=== PATIENT | female | born 1955 | race Caucasian/White ===

== ENCOUNTER 2017-01-01 08:19 | Inpatient (IN) | payer BC ==
[~2017-01-01] VITALS: Ht 157.5 cm; Wt 68.9 kg
[2017-01-01] VITALS (8 sets, daily range): BP systolic 110–145; BP diastolic 64–87; PULSE 59–85; TEMP 36.6–37; O2SAT 94–99; Ht 157.5 cm; Wt 68.9 kg
[~2017-01-01 08:19] MED LIST: CLON0.5T3 PO; LEVO88TA PO; OXYC1TAB3 PO; TAMS0.4C38 PO
[2017-01-01] MEDS ORDERED: SODIUM CHLORIDE 0.9% 1000ML 1,000 ML IV STA (08:56)
[2017-01-01] MEDS ORDERED: OXYC1TAB3 PO (09:03)
[2017-01-01] MEDS ORDERED: TAMS0.4C38 PO (09:03)
[2017-01-01 09:07] LABS: BASO % 0.5 %; BASO ABS # 0.04 K/uL (0-0.2); COMPLETE YES; EOS % 0.5 %; HEMATOCRIT 42.7 % (37-47); IG% 0.1 %; LYMPH % 19.8 %; LYMPH ABS # 1.47 K/uL (1.2-3.4); MEAN CELL VOLUME 90.1 fL (80-100); MEAN CORPUSCULAR HEMOGLOBIN 30.6 pg (25-34); MEAN PLATELET VOLUME 10.1 fL (7.4-10.4); MONO % 8.6 %; NEUT % 70.5 %; PLATELET COUNT 287 K/uL (130-400); RED BLOOD COUNT 4.74 M/uL (4.2-5.4); WHITE BLOOD COUNT 7.44 K/uL (4.8-10.8)
[2017-01-01 09:23] LABS: BUN/CREATININE RATIO 12.4 (10-20); CALCIUM 9.5 mg/dl (8.5-10.1); CREATININE 0.83 mg/dl (0.60-1.20); POTASSIUM 3.8 mmol/L (3.5-5.1)
[2017-01-01 09:32] LABS: URINE APPEARANCE CLEAR (CLEAR); URINE BILIRUBIN NEG (NEG); URINE COLOR YELLOW; URINE NITRITE NEG (NEG); URINE SPECIFIC GRAVITY 1.017 (1.000-1.030); UROBILINOGEN NEG (NEG)
[2017-01-01 09:43] LABS: MANUAL MICROSCOPIC REQUIRED? NO; REVIEW REQ? NO
--- NOTE | 2017-01-01 10:21 | DIAGNOSTIC IMAGING REPORT ---
(RENAL)RETROPERITON COMP CLINICAL HISTORY: 61 years-old Female presenting with 8 mm L distal ureter stone. TECHNIQUE: Real-time grayscale and limited color Doppler ultrasound imaging of the kidneys and bladder was performed. COMPARISON: CT from 12/27/2016. FINDINGS: Right kidney: Normal echogenicity. Right kidney measures 10.8 cm. No hydronephrosis. No convincing evidence of calculus or mass. Normal perfusion. Left kidney: Normal echogenicity. Left kidney measures 11.0 cm. Mild pelviectasis. The left ureter is also dilated throughout its course to the level of the distal ureter where there is a 7 mm hyperechogenic shadowing focus with twinkling artifact consistent with ureteral calculus. This is 1 cm proximal to the left ureterovesical junction. Normal perfusion. Bladder: Decompressed. Right ureteral jet noted. Left ureteral jet not visualized. Other: None. IMPRESSION: 1. Persistent left hydroureteronephrosis with an obstructing 7 mm calculus in the distal left ureter 1 cm proximal to the left ureterovesical junction. Electronically signed by: Cleveland Greenberg M.D. 01/01/2017 10:19 AM Dictated Date/Time: 01/01/2017 10:17 AM
[2017-01-01] MEDS ORDERED: ACETAMINOPHEN 325 MG TAB PO PRN (12:15)
[2017-01-01] MEDS ORDERED: ALUMINUM/MAGNESIUM/SIMETH (MAALOX MAX) 30 ML UDC PO PRN (12:15)
[2017-01-01] MEDS ORDERED: ONDANSETRON INJ 2 MG/ML 2 ML VIAL IV PRN ×2 (12:15→13:30)
[2017-01-01] MEDS ORDERED: OXYCODONE HCL IR 5 MG TAB (IMMEDIATE RELEASE) PO PRN (12:15)
--- NOTE | 2017-01-01 12:52 | History and Physical ---
History & Physical Date & Time of Service: Jan 01, 2017 at 12:46 Chief Complaint: Left Side Pain Primary Care Physician: Conchis Craft M.D. History of Present Illness Source: patient, family, hospital records This is a 61 year old female with a PMH of hypothyroidism, +BRCA-1 - presents with lower abdominal pressure/pain. States that in late November, she first developed hematuria - but that has now resolved. Was seen in [facility] on 12/27/16 - found to have an 8mm ureteral stone at that time; was given Flomax and pain medications and was sent home. She has been drinking a lot of water since then, but pain persisted to the point where it was bad enough that she had to come back to the hospital. On renal U/S here, shows a 7mm stone. Currently, denies urinary symptoms, denies gross hematuria; has some tenderness throughout the lower abdomen. +mild nausea, no vomiting. No other symptoms at this time. Past Medical/Surgical History Surgical Problems: (1) H/O section Status: Resolved (2) H/O oophorectomy Status: Resolved (3) Hx of appendectomy Status: Resolved Family History Cancer Heart disease Hypertension Social History Smoking Status: Never Smoker Drug Use: none Marital Status: Occupational Status: employed Multi-Drug Resistant Organisms History of MDRO: No Allergies Coded Allergies: Hydromorphone (Unverified Allergy, Unknown, ., 12/27/16) Home Medications Scheduled Levothyroxine Sodium (Synthroid), 88 MCG PO DAILY Tamsulosin Hcl (Flomax), 0.4 MG PO DAILY Scheduled PRN Oxycodone Ir (Roxicodone Ir), 1-2 TAB PO Q4H PRN for Severe Pain Review of Systems Constitutional: No fever, No chills, No sweats, No weakness Eyes: No worsening of vision ENT: No hearing loss Respiratory: No cough, No sputum, No shortness of breath, No dyspnea on exertion, No dyspnea at rest, No hemoptysis Cardiovascular: No chest pain, No edema, No palpitations Abdomen: + pain (lower abdomen), + nausea, No vomiting, No diarrhea, No constipation, No GI bleeding Musculoskeletal: No joint pain, No muscle pain Genitourinary - Female: No dysuria, No urinary frequency, No urinary urgency, No urinary incontinence, No urinary retention, No hematuria (resolved) Neurologic: No memory loss, No paralysis, No weakness Hematologic / Lymphatic: No abnormal bleeding/bruising Integumentary: No rash Allergic / Immunologic: No environmental allergies, No seasonal allergies Physical Exam Vital Signs Date Time Temp Pulse Resp B/P (MAP) Pulse Ox O2 Delivery O2 Flow Rate FiO2 01/01/17 12:42 86 16 130/74 96 01/01/17 10:14 82 18 135/95 99 Room Air 01/01/17 08:20 36.7 83 18 154/94 98 Room Air General Appearance: no apparent distress Head: normocephalic, atraumatic Eyes: normal inspection ENT: hearing grossly normal Neck: supple Respiratory/Chest: lungs clear, normal breath sounds, no respiratory distress, no accessory muscle use Cardiovascular: regular rate, rhythm, no edema, no murmur Abdomen/GI: normal bowel sounds, soft, + tenderness (lower abdomen) Extremities/Musculoskelatal: no calf tenderness, normal capillary refill, no pedal edema Neurologic/Psych: no motor/sensory deficits, alert, normal mood/affect Skin: normal color Lymphatic: no adenopathy Diagnostics Laboratory Results Results Past 24 Hours Test 01/01/17 08:25 01/01/17 08:35 Range/Units Urine Color YELLOW Urine Appearance CLEAR CLEAR Urine pH 6.0 4.5-7.5 Urine Specific [place] 1.017 1.000-1.030 Urine Protein NEG NEG Urine Glucose (UA) NEG NEG Urine Ketones TRACE NEG Urine Occult Blood TRACE NEG Urine Nitrite NEG NEG Urine Bilirubin NEG NEG Urine Urobilinogen NEG NEG Urine Leukocyte Esterase NEG NEG Urine WBC (Auto) 1-5 0-5 /hpf Urine RBC (Auto) 5-10 0-4 /hpf Urine Hyaline Casts (Auto) 0 0-5 /lpf Urine Epithelial Cells (Auto) 10-20 0-5 /lpf Urine Bacteria (Auto) NEG NEG White Blood Count 7.44 4.8-10.8 K/uL Red Blood Count 4.74 4.2-5.4 M/uL Hemoglobin 14.5 12.0-16.0 g/dL Hematocrit 42.7 37-47 % Mean Corpuscular Volume 90.1 80-100 fL Mean Corpuscular Hemoglobin 30.6 25-34 pg Mean Corpuscular Hemoglobin Concent 34.0 32-36 g/dl Platelet Count 287 130-400 K/uL Mean Platelet Volume 10.1 7.4-10.4 fL Neutrophils (%) (Auto) 70.5 % Lymphocytes (%) (Auto) 19.8 % Monocytes (%) (Auto) 8.6 % Eosinophils (%) (Auto) 0.5 % Basophils (%) (Auto) 0.5 % Neutrophils # (Auto) 5.24 1.4-6.5 K/uL Lymphocytes # (Auto) 1.47 1.2-3.4 K/uL Monocytes # (Auto) 0.64 0.11-0.59 K/uL Eosinophils # (Auto) 0.04 0-0.5 K/uL Basophils # (Auto) 0.04 0-0.2 K/uL RDW Standard Deviation 40.1 36.4-46.3 fL RDW Coefficient of Variation 12.2 11.5-14.5 % Immature Granulocyte % (Auto) 0.1 % Immature Granulocyte # (Auto) 0.01 0.00-0.02 K/uL Sodium Level 140 136-145 mmol/L Potassium Level 3.8 3.5-5.1 mmol/L Chloride Level 107 98-107 mmol/L Carbon Dioxide Level 26 21-32 mmol/L Anion Gap 7.0 3-11 mmol/L Blood Urea Nitrogen 10 7-18 mg/dl Creatinine 0.83 0.60-1.20 mg/dl Est Creatinine Clear Calc Drug Dose 65.6 ml/min Estimated GFR () 88.8 Estimated GFR (Non- 76.6 BUN/Creatinine Ratio 12.4 10-20 Random Glucose 97 70-99 mg/dl Calcium Level 9.5 8.5-10.1 mg/dl Total Bilirubin 0.6 0.2-1 mg/dl Aspartate Amino Transf (AST/SGOT) 30 15-37 U/L Alanine Aminotransferase (ALT/SGPT) 25 12-78 U/L Alkaline Phosphatase 61 45-117 U/L Total Protein 8.5 6.4-8.2 gm/dl Albumin 4.3 3.4-5.0 gm/dl Globulin 4.1 2.5-4.0 gm/dl Albumin/Globulin Ratio 1.0 0.9-2 Lipase 208 73-393 U/L Chemistry Specimen Hemolysis Diagnostic Radiology (RENAL)RETROPERITON COMP CLINICAL HISTORY: 61 years-old Female presenting with 8 mm L distal ureter stone. TECHNIQUE: Real-time grayscale and limited color Doppler ultrasound imaging of the kidneys and bladder was performed. COMPARISON: CT from 12/27/2016. FINDINGS: Right kidney: Normal echogenicity. Right kidney measures 10.8 cm. No hydronephrosis. No convincing evidence of calculus or mass. Normal perfusion. Left kidney: Normal echogenicity. Left kidney measures 11.0 cm. Mild pelviectasis. The left ureter is also dilated throughout its course to the level of the distal ureter where there is a 7 mm hyperechogenic shadowing focus with twinkling artifact consistent with ureteral calculus. This is 1 cm proximal to the left ureterovesical junction. Normal perfusion. Bladder: Decompressed. Right ureteral jet noted. Left ureteral jet not visualized. Other: None. IMPRESSION: 1. Persistent left hydroureteronephrosis with an obstructing 7 mm calculus in the distal left ureter 1 cm proximal to the left ureterovesical junction. Impression Assessment and Plan This is a 61 year old female with a PMH of hypothyroidism, +BRCA-1 - presents with L UV junction ureteral stone L ureterovesical junction stone Renal U/S = 7mm stone will continue Flomax Zofran PRN Oral pain medications PRN urology consulted plan: removal of stone today (01/01), monitor overnight; possible d/c in AM Hypothyroidism continue home dose 88mcg of Synthroid FULL CODE VTE Prophylaxis VTE Risk Assessment Done? Y/N: Yes Risk Level: Low Given or contraindicated: Treatment not indicated
[2017-01-01] MEDS ORDERED: CONRAY 30% 150ML BOTTLE ONE (13:26)
[2017-01-01] MEDS ORDERED: EpHEDrine SULFATE INJ 50 MG/ML AMP IV PRN (13:30)
[2017-01-01] MEDS ORDERED: ATROPINE SULFATE 0.1 MG/ML 5ML SYR IV PRN (13:30)
[2017-01-01] MEDS ORDERED: FENTANYL CITRATE INJ 50 MCG/1 ML 2 ML VIAL IV PRN (13:30)
[2017-01-01] MEDS ORDERED: MIDAZOLAM HCL 1 MG/ML 2ML VIAL ONE (13:32)
[2017-01-01] MEDS ORDERED: PROPOFOL IV EMULSION 10 MG/ML 20 ML VIAL IV ONE (13:32)
[2017-01-01] MEDS ORDERED: DEXAMETHASONE SOD INJ 4 MG/ML VIAL ONE (13:32)
[2017-01-01] MEDS ORDERED: ONDANSETRON INJ 2 MG/ML 2 ML VIAL ONE (13:32)
[2017-01-01] MEDS ORDERED: LIDOCAINE HCL 2% 2 ML VIAL (20MG/ML) ONE (13:32)
[2017-01-01] MEDS ORDERED: FENTANYL CITRATE INJ 50 MCG/1 ML 2 ML VIAL ONE ×2 (13:32→14:43)
[2017-01-01] MEDS ORDERED: CIPROFLOXACIN 400MG / 200ML D5W ONE (13:43)
--- NOTE | 2017-01-01 13:46 | Urology Consultation ---
History General Date of Service: Jan 01, 2017. Primary Care Physician: Conchis Craft M.D. Pt seen a urologist before?: No History of Present Illness 61 year old female with a PMH of hypothyroidism, +BRCA-1 - presents with lower abdominal pressure/pain. States that in late November, she first developed hematuria - but that has now resolved. Was seen in [facility] on 12/27/16 - found to have an 8mm ureteral stone at that time; was given Flomax and pain medications and was sent home. She attempted a trial of passage, but pain persisted to the point where it was bad enough that she had to come back to the hospital. Repeat U/S here, shows a 7mm stone. Currently, denies urinary symptoms, denies gross hematuria; has some tenderness throughout the lower abdomen. +mild nausea, no vomiting. She is very concerned about recurrent pain and wishes to have the stone taken care of. Laboratory Labs were reviewed and are within normal limits unless listed below. Labs are available in the chart and at [facility] Problem List Medical Problems: (1) Hypertension Status: Acute (2) Kidney stone Status: Acute (3) Kidney stone on left side Status: Acute (4) Pancreatitis Status: Acute (5) Splenic artery aneurysm Status: Acute Past History other Past Surgical History: other Family History Cancer Heart disease Hypertension Social History Hx Tobacco Use In Past Year?: No Marital status: Occupation status: employed History of MDRO No Allergies Coded Allergies: Hydromorphone (Verified Allergy, Unknown, ., 01/01/17) Medications Home Medications: Home Meds and Scripts Medications Dose Route/Sig Max Daily Dose Days Date Category Roxicodone Ir (Oxycodone HCl) 5 Mg Tab 1-2 Tab PO Q4H PRN 01/01/17 Reported Flomax (Tamsulosin Hcl) 0.4 Mg Cap 0.4 Mg PO DAILY 01/01/17 Reported Synthroid (Levothyroxine Sodium) 88 Mcg Tab 88 Mcg PO DAILY 12/27/16 Reported Inpatient Medications: Current Inpatient Medications Medications (Trade) Dose Ordered Sig/Danie Route Start Time Stop Time Status Last Admin Dose Admin Acetaminophen (Tylenol Tab) 650 mg Q4H PRN PO 01/01/17 12:15 01/31/17 12:14 Al Hydrox/Mg Hydrox/Simethicone (Maalox Max Susp) 15 ml Q4H PRN PO 01/01/17 12:15 01/31/17 12:14 Ondansetron HCl (Zofran Inj) 4 mg Q6H PRN IV 01/01/17 12:15 01/31/17 12:14 Levothyroxine Sodium (Synthroid Tab) 88 mcg DAILY PO 01/02/17 09:00 02/01/17 08:59 UNV Oxycodone HCl (Roxicodone Immediate Rel Tab) 5 mg Q4H PRN PO 01/01/17 12:15 01/15/17 12:14 Tamsulosin HCl (Flomax Cap) 0.4 mg DAILY PO 01/02/17 09:00 02/01/17 08:59 UNV Ketorolac Tromethamine (Toradol Inj) 30 mg Q6H PRN IV 01/01/17 12:15 01/06/17 12:14 UNV Fentanyl Citrate (Fentanyl Inj) 50 mcg Q5M PRN IV 01/01/17 13:30 01/02/17 13:29 UNV Ondansetron HCl (Zofran Inj) 4 mg ONE PRN IV 01/01/17 13:30 UNV Ephedrine Sulfate (EpHEDrine SULFATE INJ) 5 mg Q5M PRN IV 01/01/17 13:30 01/02/17 13:29 UNV Atropine Sulfate (Atropine Sulfate 0.1MG/Ml Inj) 0.5 mg Q1M PRN IV 01/01/17 13:30 01/02/17 13:29 UNV Review of Systems Review of Systems Constitutional: No fever, No chills Eyes: No blurred vision Neurological: No dizzy Endocrine: No excessive thirst Gastrointestinal: + abdominal pain, + nausea Cardiovascular: No heart murmur, No chest pain Respiratory: No shortness of breath Blood / Lymphatic: No bleed easily Ears / Nose / Throat: No hearing loss Psychologic / Mental: No nervous Female : + kidney stones All Other Systems: Reviewed and Negative Physical Exam Vital Signs: Vital Signs Past 12 Hours Date Time Temp Pulse Resp B/P (MAP) Pulse Ox O2 Delivery O2 Flow Rate FiO2 01/01/17 13:24 Room Air 01/01/17 13:05 36.8 67 18 128/64 (85) 97 Room Air 01/01/17 12:45 96 Room Air 01/01/17 12:42 86 16 130/74 96 01/01/17 10:14 82 18 135/95 99 Room Air 01/01/17 08:20 36.7 83 18 154/94 98 Room Air Physical Exam: General Appearance: WD/WN, no apparent distress ENT: normal ENT inspection, hearing grossly normal, pharynx normal Neck: supple Respiratory/Chest: lungs clear, normal breath sounds Cardiovascular: regular rate, rhythm, no edema Extremities: normal range of motion, non-tender Neurologic/Psychiatric: test deskman II-XII nml as tested, no motor/sensory deficits, alert Skin: normal color, warm/dry, no rash Lymphatic: no adenopathy Assessment & Plan Assessment & Plan (1) Flank pain (2) Ureteral stone Large left distal ureteral stone. Persistent pain. Likely stuck and not passable given the initial symptoms back in November. Will plan to take to OR for cysto, Uscope, laser litho, and stent. Pt has appt with Dr. Sorensen next week. At that time she can remove the stent.
--- NOTE | 2017-01-01 14:30 | OPERATIVE REPORT ---
DATE OF OPERATION: 01/01/2017 PREOPERATIVE DIAGNOSIS: Left ureteral calculus. POSTOPERATIVE DIAGNOSIS: Same. PROCEDURE: Cystoscopy, left ureteroscopy, stone extraction, left retrograde pyelogram, left ureteral stent placement. SURGEON: Bird Matthew M.D. ANESTHESIA: General endotracheal. COMPLICATIONS: None. SPECIMENS: Ureteral stone. DRAINS: A 6-Italian x 24 cm ureteral stent. ESTIMATED BLOOD LOSS: Minimal. DESCRIPTION OF THE PROCEDURE: The patient was brought to the operative suite, positively identified, placed on table in supine position. After induction of general anesthesia, placed in dorsal lithotomy position, the genitalia were prepped and draped in sterile fashion. Preoperative antibiotics were administered. Timeout was performed. Rigid cystoscope passed through the urethra and bladder. Urethra was normal. Bladder was unremarkable. I turned my attention toward the left ureteral orifice. This was intubated with an open ended catheter. Retrograde pyelogram was performed outlining a filling defect in the distal ureter consistent with the stone seen on the previous imaging studies. A sensor wire was passed up to the level of the renal pelvis and a rigid ureteroscope was passed alongside that wire with the help of a second wire until the stone was encountered. This was a 7 mm yellow jagged stone. It appeared to be small enough to extract only with the basket. Using an N-Jay basket, the stone was entrapped and then removed completely without difficulty. There was some snugness to the distal ureter, but it did fit without too much pressure. That stone was sent for analysis and the scope was passed up once again into the ureter. There were no additional stone fragments seen. Retrograde pyelogram was once again performed. This showed no other abnormalities. A 6-Italian x 24 cm ureteral stent was then placed with a good curl seen proximally and distally. The strings were cut short in order to allow the stent to stay in place and allow the ureter to heal and the edema to settle. The patient tolerated the procedure well. Sponge and needle counts were correct. Taken to the PACU in stable condition. I attest to the content of the Intraoperative Record and any orders documented therein. Any exception s are noted below.
--- NOTE | 2017-01-01 14:31 | DIAGNOSTIC IMAGING REPORT ---
RETROGRADE INCLUDES KUB CLINICAL HISTORY: 61 years-old Female presenting with LEFT SIDED RETROGRADE WITH STENT. TECHNIQUE: 3 fluoroscopic spot image(s) obtained as part of an intraoperative procedure. COMPARISON: CT from 12/27/2016. FINDINGS/IMPRESSION: A guidewire was introduced into the left renal collecting system, which is partially opacified with contrast. Subsequently, a ureteral stent was placed. Please see surgical report for further details. Fluoroscopy dosage (mGy): Not available. Fluoroscopy time: 10 seconds. Number of fluoroscopic spot images: 3. Electronically signed by: Cleveland Greenberg M.D. 01/01/2017 2:30 PM Dictated Date/Time: 01/01/2017 2:29 PM
[2017-01-01] MEDS ORDERED: KETOROLAC TROMETHAMINE 30 MG/ML VIAL ONE (14:55)
[2017-01-01] MEDS: KETOROLAC TROMETHAMINE 30 MG/ML VIAL IV PRN ×2 (14:56→21:29)
--- NOTE | 2017-01-01 14:58 | Anesthesiology Progress Note ---
Anesthesia Post Op Note Date & Time Jan 01, 2017 at 14:57 Vital Signs Pain Intensity: 4 Vital Signs Past 12 Hours Date Time Temp Pulse Resp B/P (MAP) Pulse Ox O2 Delivery O2 Flow Rate FiO2 01/01/17 14:50 56 14 133/73 100 Nasal Cannula 2 01/01/17 14:40 60 19 143/81 100 Nasal Cannula 5 01/01/17 14:30 69 18 136/81 100 Nasal Cannula 5 01/01/17 14:23 36.6 75 12 131/77 100 Nasal Cannula 5 01/01/17 13:24 Room Air 01/01/17 13:05 36.8 67 18 128/64 (85) 97 Room Air 01/01/17 12:45 96 Room Air 01/01/17 12:42 86 16 130/74 96 01/01/17 10:14 82 18 135/95 99 Room Air 01/01/17 08:20 36.7 83 18 154/94 98 Room Air Notes Mental Status: alert / awake / arousable, participated in evaluation Pt Amnestic to Procedure: Yes Nausea / Vomiting: adequately controlled Pain: adequately controlled Airway Patency, RR, SpO2: stable & adequate BP & HR: stable & adequate Hydration State: stable & adequate Anesthetic Complications: no major complications apparent
--- NOTE | 2017-01-01 16:17 | EMERGENCY ROOM VISIT NOTE ---
History First contact with patient: 08:40 Chief Complaint: FLANK PAIN Stated Complaint: LEFT SIDE PAIN History of Present Illness The patient is a 61 year old female who presents to the Emergency Room with complaints of persistent left flank and lower back pain. The patient reports that she was here [address] showing an 8 mm left ureteral stone. The patient reports that she has had intermittent pain throughout the week. The pain became severe last night, and the patient took oxycodone at 7 PM and 9 PM. The patient currently rates her discomfort a 7 out of 10. She has noticed decreased urine output. She denies any fevers or chills, anterior abdominal pain, diarrhea or vomiting. She has had mild nausea. The patient reports that she has an appointment scheduled for next Tuesday with Dr. Sorensen. Review of Systems HEENT: Denies dizziness, visual problems, hearing loss, tinnitus. Denies difficulty swallowing or oral lesions. PULMONARY: Denies cough, shortness of breath, sputum production or hemoptysis. CARDIOVASCULAR: Denies chest pain, palpitations, dyspnea on exertion, orthopnea or peripheral edema. GASTROINTESTINAL: Denies diarrhea, constipation, vomiting or anterior abdominal pain. GENITOURINARY: Denies dysuria, frequency, urgency or nocturia. NEUROLOGIC: Denies history of epilepsy, CVA, TIA or chronic headaches. MUSCULOSKELETAL: Denies history of joint tenderness/swelling. SKIN: Denies rashes or lesions. PSYCHIATRIC: Denies history of depression or mental illness. ENDOCRINE: Denies history of diabetes or thyroid disorders. Past Medical/Surgical History Medical Problems: (1) Flank pain (2) Ureteral stone Surgical Problems: (1) H/O section (2) H/O oophorectomy (3) Hx of appendectomy Family History Cancer Heart disease Hypertension Social History Smoking Status: Never Smoker Alcohol Use: none Drug Use: none Marital Status: Housing Status: lives with significant other Occupation Status: employed Current/Historical Medications Scheduled Levothyroxine Sodium (Synthroid), 88 MCG PO DAILY Tamsulosin Hcl (Flomax), 0.4 MG PO DAILY Scheduled PRN Oxycodone Ir (Roxicodone Ir), 1-2 TAB PO Q4H PRN for Severe Pain Physical Exam Vital Signs Date Time Temp Pulse Resp B/P (MAP) Pulse Ox O2 Delivery O2 Flow Rate FiO2 01/01/17 10:14 82 18 135/95 99 Room Air 01/01/17 08:20 36.7 83 18 154/94 98 Room Air Physical Exam CONSTITUTIONAL: Healthy and well nourished. Patient does not appear in any significant distress or discomfort. HEENT: Normocephalic, atraumatic. Pupils equal, round and reactive. Nose icterus or conjunctival injection/pallor. NECK: Full active range of motion without discomfort. RESPIRATORY: Clear to auscultation bilaterally with no wheezing, crackles, rhonchi or stridor. CARDIOVASCULAR: Regular rate and rhythm with no murmurs, rubs or gallops. GASTROINTESTINAL: Bowel sounds present in all quadrants. No abdominal tenderness to palpation or CVA tenderness. No rigidity, guarding or rebound. No focal left lower quadrant tenderness to palpation. MUSCULOSKELETAL: Full range of motion of all joints without discomfort. INTEGUMENTARY: No rash or other significant dermatologic conditions noted. HEMATOLOGIC: No ecchymosis or petechiae noted. NEUROLOGIC: No focal neurologic deficits noted. Medical Decision & Procedures ER Provider Diagnostic Interpretation: Retroperitoneal ultrasound shows a persistent distal left ureteral calculus measuring 7 mm and approximately 1 cm above the UVJ. Radiologist report is as follows: (RENAL)RETROPERITON COMP CLINICAL HISTORY: 61 years-old Female presenting with 8 mm L distal ureter stone. TECHNIQUE: Real-time grayscale and limited color Doppler ultrasound imaging of the kidneys and bladder was performed. COMPARISON: CT from 12/27/2016. FINDINGS: Right kidney: Normal echogenicity. Right kidney measures 10.8 cm. No hydronephrosis. No convincing evidence of calculus or mass. Normal perfusion. Left kidney: Normal echogenicity. Left kidney measures 11.0 cm. Mild pelviectasis. The left ureter is also dilated throughout its course to the level of the distal ureter where there is a 7 mm hyperechogenic shadowing focus with twinkling artifact consistent with ureteral calculus. This is 1 cm proximal to the left ureterovesical junction. Normal perfusion. Bladder: Decompressed. Right ureteral jet noted. Left ureteral jet not visualized. Other: None. IMPRESSION: 1. Persistent left hydroureteronephrosis with an obstructing 7 mm calculus in the distal left ureter 1 cm proximal to the left ureterovesical junction. Laboratory Results 01/01/17 08:35 Red Blood Count 4.74, Mean Corpuscular Volume 90.1, Mean Corpuscular Hemoglobin 30.6, Mean Corpuscular Hemoglobin Concent 34.0, Mean Platelet Volume 10.1, Neutrophils (%) (Auto) 70.5, Lymphocytes (%) (Auto) 19.8, Monocytes (%) (Auto) 8.6, Eosinophils (%) (Auto) 0.5, Basophils (%) (Auto) 0.5, Neutrophils # (Auto) 5.24, Lymphocytes # (Auto) 1.47, Monocytes # (Auto) 0.64, Eosinophils # (Auto) 0.04, Basophils # (Auto) 0.04 01/01/17 08:35 Test 01/01/17 08:25 01/01/17 08:35 Urine Color YELLOW Urine Appearance CLEAR (CLEAR) Urine pH 6.0 (4.5-7.5) Urine Specific Chancellor 1.017 (1.000-1.030) Urine Protein NEG (NEG) Urine Glucose (UA) NEG (NEG) Urine Ketones TRACE (NEG) Urine Occult Blood TRACE (NEG) Urine Nitrite NEG (NEG) Urine Bilirubin NEG (NEG) Urine Urobilinogen NEG (NEG) Urine Leukocyte Esterase NEG (NEG) Urine WBC (Auto) 1-5 /hpf (0-5) Urine RBC (Auto) 5-10 /hpf (0-4) Urine Hyaline Casts (Auto) 0 /lpf (0-5) Urine Epithelial Cells (Auto) 10-20 /lpf (0-5) Urine Bacteria (Auto) NEG (NEG) White Blood Count 7.44 K/uL (4.8-10.8) Red Blood Count 4.74 M/uL (4.2-5.4) Hemoglobin 14.5 g/dL (12.0-16.0) Hematocrit 42.7 % (37-47) Mean Corpuscular Volume 90.1 fL (80-100) Mean Corpuscular Hemoglobin 30.6 pg (25-34) Mean Corpuscular Hemoglobin Concent 34.0 g/dl (32-36) Platelet Count 287 K/uL (130-400) Mean Platelet Volume 10.1 fL (7.4-10.4) Neutrophils (%) (Auto) 70.5 % Lymphocytes (%) (Auto) 19.8 % Monocytes (%) (Auto) 8.6 % Eosinophils (%) (Auto) 0.5 % Basophils (%) (Auto) 0.5 % Neutrophils # (Auto) 5.24 K/uL (1.4-6.5) Lymphocytes # (Auto) 1.47 K/uL (1.2-3.4) Monocytes # (Auto) 0.64 K/uL (0.11-0.59) Eosinophils # (Auto) 0.04 K/uL (0-0.5) Basophils # (Auto) 0.04 K/uL (0-0.2) RDW Standard Deviation 40.1 fL (36.4-46.3) RDW Coefficient of Variation 12.2 % (11.5-14.5) Immature Granulocyte % (Auto) 0.1 % Immature Granulocyte # (Auto) 0.01 K/uL (0.00-0.02) Anion Gap 7.0 mmol/L (3-11) Est Creatinine Clear Calc Drug Dose 65.6 ml/min Estimated GFR () 88.8 Estimated GFR (Non- 76.6 BUN/Creatinine Ratio 12.4 (10-20) Calcium Level 9.5 mg/dl (8.5-10.1) Total Bilirubin 0.6 mg/dl (0.2-1) Aspartate Amino Transf (AST/SGOT) 30 U/L (15-37) Alanine Aminotransferase (ALT/SGPT) 25 U/L (12-78) Alkaline Phosphatase 61 U/L (45-117) Total Protein 8.5 gm/dl (6.4-8.2) Albumin 4.3 gm/dl (3.4-5.0) Globulin 4.1 gm/dl (2.5-4.0) Albumin/Globulin Ratio 1.0 (0.9-2) Lipase 208 U/L (73-393) Chemistry Specimen Hemolysis The above labs were reviewed. The patient has no leukocytosis. Urinalysis is not consistent with infection. Partial renal profile, LFTs and lipase are also normal. Medications Administered Medications (Trade) Dose Ordered Sig/Danie Route Start Time Stop Time Status Last Admin Dose Admin Sodium Chloride 1,000 ml @ 999 mls/hr Q1H1M STAT IV 01/01/17 08:56 01/01/17 09:56 DC 01/01/17 09:16 999 MLS/HR ED Course Patient history and physical exam were performed. Nurse's notes were reviewed. Vital signs were reviewed, showing an elevated blood pressure 154/94. The patient is afebrile. I also reviewed documentation from the patient's last ED visit where she had multiple imaging studies performed, showing an 8 mm obstructing calculus of the distal left ureter, approximately 3 cm above the UVJ. No additional calculi were seen in either kidney. A 15 mm peripherally calcified splenic artery aneurysm was also noted. IV access was established, and labs were drawn. The patient was hydrated with a liter normal saline. The patient refused any analgesics or antiemetics. Review of labs does not show any leukocytosis, elevated transaminases or lipase. Creatinine is normal. Urinalysis was also normal. Retroperitoneal ultrasound shows a persistent 7 mm distal left ureteral calculus. The case was further discussed with Dr. Marshall, ED attending physician, who suggested consultation with urology. I then discussed the case further with Dr. Matthew, [facility] urology, who indicates that they may be possible that the patient cannot get into surgery yet today, however he will see if it is possible to take her to the OR. The patient was Nothing by mouth status. The [facility] hospitalist service was also consulted for further medical management in anticipation that the patient would undergo surgery tomorrow morning. Please see their dictations for further treatment and final disposition. Clinical exam is not suggestive of pyelonephritis. Medical Decision Ultrasound shows evidence for a persistent left distal ureteral calculus. She is currently afebrile, has no leukocytosis or signs of infection on urinalysis. I suspect that her discomfort, pain and nausea is from a ureteral stone obstruction. Her clinical exam is not consistent with diverticulitis, bowel obstruction or peritonitis. She is status post appendectomy and bilateral salpingo-oophorectomy. I do not suspect cardiopulmonary referred pain. [place] Drug Monitoring Program Search Results: patient reviewed within database, no issues identified Medication Reconcilliation Current Medication List: was personally reviewed by me Blood Pressure Screening Patient's blood pressure: Normal blood pressure Impression Primary Impression: Left ureteral calculus Departure Information Referrals Conchis Craft M.D. (PCP) Patient Instructions My [facility]
[2017-01-02 03:18] VITALS: BP 115/66; PULSE 58; TEMP 36.8; O2SAT 96
[2017-01-02] MEDS ORDERED: LEVOTHYROXINE 88 MCG TAB PO SCH (06:00)
[2017-01-02 06:41] LABS: HEMATOCRIT 38.7 % (37-47); MEAN CELL VOLUME 89.8 fL (80-100); MEAN CORPUSCULAR HEMOGLOBIN 29.7 pg (25-34); MEAN CORPUSCULAR HGB CONC 33.1 g/dl (32-36); MEAN PLATELET VOLUME 10.3 fL (7.4-10.4); PLATELET COUNT 264 K/uL (130-400); RED BLOOD COUNT 4.31 M/uL (4.2-5.4); WHITE BLOOD COUNT 8.76 K/uL (4.8-10.8)
[2017-01-02 07:09] LABS: BUN/CREATININE RATIO 14.4 (10-20); CALCIUM 8.9 mg/dl (8.5-10.1); CREATININE 0.64 mg/dl (0.60-1.20)
[2017-01-02 07:31] VITALS: BP 136/81; PULSE 50; TEMP 37; O2SAT 98
[2017-01-02] MEDS ORDERED: TAMSULOSIN HCL 0.4 MG CAP PO SCH (09:00)
--- NOTE | 2017-01-02 10:37 | Progress Note ---
Subjective Date of Service: Jan 02, 2017. Subjective Pt evaluation today including: conversation w/ patient, physical exam, chart review Voiding: no voiding problems POD#1 Left Uscope and stone removal with stent Minimal left flank pain. Feeling much better compared to before Voiding well. No dysuria. No hematuria. Min urge and freq. No fevers. No chills. Tolerating diet. Problem List Medical Problems: (1) Hypertension Status: Acute (2) Kidney stone Status: Acute (3) Kidney stone on left side Status: Acute (4) Left ureteral calculus Status: Acute (5) Pancreatitis Status: Acute (6) Splenic artery aneurysm Status: Acute Review of Systems Constitutional: No fever, No chills Respiratory: No shortness of breath Cardiac: No chest pain Female : No dysuria All Other Systems: Reviewed and Negative Objective Vital Signs Date Time Temp Pulse Resp B/P (MAP) Pulse Ox O2 Delivery O2 Flow Rate FiO2 01/02/17 10:17 Room Air 01/02/17 07:31 37.0 50 16 136/81 (99) 98 Room Air 01/02/17 03:18 36.8 58 16 115/66 (82) 96 Room Air 01/02/17 00:30 Room Air 01/01/17 22:58 37.0 85 16 120/73 (89) 96 Room Air 01/01/17 19:41 36.8 61 18 110/70 (83) 94 Room Air 01/01/17 17:30 36.8 72 18 115/73 (87) 95 Room Air 01/01/17 16:30 36.9 59 18 130/84 (99) 95 Room Air 01/01/17 16:00 36.6 61 18 135/87 (103) 98 Room Air 01/01/17 15:30 Room Air 01/01/17 15:30 36.7 65 18 145/80 (101) 98 Room Air 01/01/17 15:30 99 Room Air 01/01/17 15:15 61 14 142/79 99 Room Air 01/01/17 15:00 36.5 69 19 146/85 99 Room Air 01/01/17 14:50 56 14 133/73 100 Nasal Cannula 2 01/01/17 14:40 60 19 143/81 100 Nasal Cannula 5 01/01/17 14:30 69 18 136/81 100 Nasal Cannula 5 01/01/17 14:23 36.6 75 12 131/77 100 Nasal Cannula 5 01/01/17 13:24 Room Air 01/01/17 13:05 36.8 67 18 128/64 (85) 97 Room Air 01/01/17 12:45 96 Room Air 01/01/17 12:42 86 16 130/74 96 Physical Exam General Appearance: no apparent distress Respiratory/Chest: lungs clear Cardiovascular: regular rate, rhythm Abdomen: normal bowel sounds, non tender, soft Neurologic/Psychiatric: alert, oriented x 3 Skin: no rash Laboratory Results Last 24 Hours Test 01/01/17 14:10 01/02/17 05:51 White Blood Count 8.76 K/uL Red Blood Count 4.31 M/uL Hemoglobin 12.8 g/dL Hematocrit 38.7 % Mean Corpuscular Volume 89.8 fL Mean Corpuscular Hemoglobin 29.7 pg Mean Corpuscular Hemoglobin Concent 33.1 g/dl RDW Standard Deviation 39.1 fL RDW Coefficient of Variation 12.0 % Platelet Count 264 K/uL Mean Platelet Volume 10.3 fL Sodium Level 140 mmol/L Potassium Level 4.0 mmol/L Chloride Level 106 mmol/L Carbon Dioxide Level 25 mmol/L Anion Gap 9.0 mmol/L Blood Urea Nitrogen 9 mg/dl Creatinine 0.64 mg/dl Est Creatinine Clear Calc Drug Dose 85.0 ml/min Estimated GFR () 112.4 Estimated GFR (Non- 97.0 BUN/Creatinine Ratio 14.4 Random Glucose 101 mg/dl Calcium Level 8.9 mg/dl Assessment and Plan (1) Flank pain (2) Ureteral stone Stone removed. Feeling better now. OK to discharge home from Urology point of view. Pt has appt with Dr. Sorensen in 1-2 weeks. Will plan to remove stent at that time.
[2017-01-02 11:59] VITALS: BP 120/78; PULSE 59; TEMP 36.7; O2SAT 97
--- NOTE | 2017-01-02 13:22 | Discharge Instructions ---
Discharge Instructions Date of Service Jan 02, 2017. Admission Reason for Admission: Ureteral Stone Discharge Discharge Diagnosis / Problem: LEFT URETERAL STONE S/P REMOVAL Discharge Goals Goal(s): Decrease discomfort, Improve function Activity Recommendations Activity Limitations: resume your previous activity . Instructions / Follow-Up Instructions / Follow-Up FOLLOWUP WITH FAMILY DOCTOR IN ONE WEEK FOLLOWUP WITH UROLOGY IN 1-2 WEEKS Current Hospital Diet Patient's current hospital diet: Full Liquid Diet Discharge Diet Recommended Diet: Regular Diet Procedures Procedures Performed: Cystoscopy, Left ureteroscopy, Left ureteral stent insertion Pending Studies Studies pending at discharge: no Medical Emergencies . Who to Call and When: Medical Emergencies: If at any time you feel your situation is an emergency, please call 911 immediately. . Non-Emergent Contact Non-Emergency issues call your: Primary Care Provider . . "Provider Documentation" section prepared by Lucas Chu. . VTE Core Measure Inpt VTE Proph given/why not?: Treatment not indicated
[2017-01-02 13:48] VITALS: BP 120/78; PULSE 59; TEMP 36.7; O2SAT 97
--- NOTE | 2017-01-02 18:06 | Progress Note ---
Internal Med Progress Note Date of Service: Jan 02, 2017. Provider Documentation: SUBJECTIVE: s/p cystoscopy and stone extraction pain resolved afebrile no hematuria no sob want to go home OBJECTIVE: Vital Signs-as noted below Exam: General-alert and oriented. Not in distress ENT-normal hearing Neck-no neck masses Lungs- cta b/l no wheezing or crackles Heart-s1 and s2 heard regular rate and rhythm no murmurs Abdomen-soft bowel sounds present no tenderness present no distension Extremities-no edema no erythema Neuro-alert and oriented moves extremities Lab data as noted below. ASSESSMENT & PLAN: This is a 61 year old female with a PMH of hypothyroidism, +BRCA-1 - presents with L UV junction ureteral stone L ureterovesical junction stone Renal U/S = 7mm stone s/p cystoscopy and stone extraction and stent placement f/u with urology and pcp. Hypothyroidism continue home dose 88mcg of Synthroid discharged home Vital Signs: Date Time Temp Pulse Resp B/P (MAP) Pulse Ox O2 Delivery O2 Flow Rate FiO2 01/02/17 13:48 36.7 59 18 97 Room Air 01/02/17 11:59 36.7 59 18 120/78 (92) 97 Room Air 01/02/17 10:17 Room Air 01/02/17 07:31 37.0 50 16 136/81 (99) 98 Room Air 01/02/17 03:18 36.8 58 16 115/66 (82) 96 Room Air 01/02/17 00:30 Room Air 01/01/17 22:58 37.0 85 16 120/73 (89) 96 Room Air 01/01/17 19:41 36.8 61 18 110/70 (83) 94 Room Air Lab Results: Results Past 24 Hours Test 01/02/17 05:51 Range/Units White Blood Count 8.76 4.8-10.8 K/uL Red Blood Count 4.31 4.2-5.4 M/uL Hemoglobin 12.8 12.0-16.0 g/dL Hematocrit 38.7 37-47 % Mean Corpuscular Volume 89.8 80-100 fL Mean Corpuscular Hemoglobin 29.7 25-34 pg Mean Corpuscular Hemoglobin Concent 33.1 32-36 g/dl RDW Standard Deviation 39.1 36.4-46.3 fL RDW Coefficient of Variation 12.0 11.5-14.5 % Platelet Count 264 130-400 K/uL Mean Platelet Volume 10.3 7.4-10.4 fL Sodium Level 140 136-145 mmol/L Potassium Level 4.0 3.5-5.1 mmol/L Chloride Level 106 98-107 mmol/L Carbon Dioxide Level 25 21-32 mmol/L Anion Gap 9.0 3-11 mmol/L Blood Urea Nitrogen 9 7-18 mg/dl Creatinine 0.64 0.60-1.20 mg/dl Est Creatinine Clear Calc Drug Dose 85.0 ml/min Estimated GFR () 112.4 Estimated GFR (Non- 97.0 BUN/Creatinine Ratio 14.4 10-20 Random Glucose 101 70-99 mg/dl Calcium Level 8.9 8.5-10.1 mg/dl
--- NOTE | 2017-01-02 18:08 | Discharge Summary ---
Discharge Summary Date of Service Jan 02, 2017. Discharge Summary Admission Date: Jan 01, 2017 at 12:07 Discharge Date: Jan 02, 2017 Discharge Disposition: Home Principal Diagnosis: LEFT URETERAL STONE- S/P EXTRACTION Secondary Diagnoses/Problems: HYPOTHYROIDISM Procedures: RENAL US: 1. Persistent left hydroureteronephrosis with an obstructing 7 mm calculus in the distal left ureter 1 cm proximal to the left ureterovesical junction. S/P CYSTOSCOPY AND STONE EXTRACTION AND STENT PLACEMENT Consultations: UROLOGY Medication Reconciliation Continued Medications: Levothyroxine Sodium (Synthroid) 88 Mcg Tab 88 MCG PO DAILY, TAB Oxycodone Ir (Roxicodone Ir) 5 Mg Tab 1-2 TAB PO Q4H PRN for Severe Pain, #14 TAB Tamsulosin Hcl (Flomax) 0.4 Mg Cap 0.4 MG PO DAILY, CAP Admission Information HPI (per Admitting provider): This is a 61 year old female with a PMH of hypothyroidism, +BRCA-1 - presents with lower abdominal pressure/pain. States that in late November, she first developed hematuria - but that has now resolved. Was seen in [facility] on 12/27/16 - found to have an 8mm ureteral stone at that time; was given Flomax and pain medications and was sent home. She has been drinking a lot of water since then, but pain persisted to the point where it was bad enough that she had to come back to the hospital. On renal U/S here, shows a 7mm stone. Currently, denies urinary symptoms, denies gross hematuria; has some tenderness throughout the lower abdomen. +mild nausea, no vomiting. No other symptoms at this time. Physical Exam (per Admitting): General Appearance: no apparent distress Head: normocephalic, atraumatic Eyes: normal inspection ENT: hearing grossly normal Neck: supple Respiratory/Chest: lungs clear, normal breath sounds, no respiratory distress, no accessory muscle use Cardiovascular: regular rate, rhythm, no edema, no murmur Abdomen/GI: normal bowel sounds, soft, + tenderness (lower abdomen) Extremities/Musculoskelatal: no calf tenderness, normal capillary refill, no pedal edema Neurologic/Psych: no motor/sensory deficits, alert, normal mood/affect Skin: normal color Lymphatic: no adenopathy Hospital Course This is a 61 year old female with a PMH of hypothyroidism, +BRCA-1 - presents with L UV junction ureteral stone L ureterovesical junction stone Renal U/S = 7mm stone s/p cystoscopy and stone extraction and stent placement f/u with urology and pcp. Hypothyroidism continue home dose 88mcg of Synthroid discharged home Total time spent on discharge = 35MINUTES This includes examination of the patient, discharge planning, medication reconciliation, and communication with other providers. Discharge Instructions Discharge Instructions Date of Service Jan 02, 2017. Admission Reason for Admission: Ureteral Stone Discharge Discharge Diagnosis / Problem: LEFT URETERAL STONE S/P REMOVAL Discharge Goals Goal(s): Decrease discomfort, Improve function Activity Recommendations Activity Limitations: resume your previous activity . Instructions / Follow-Up Instructions / Follow-Up FOLLOWUP WITH FAMILY DOCTOR IN ONE WEEK FOLLOWUP WITH UROLOGY IN 1-2 WEEKS Current Hospital Diet Patient's current hospital diet: Full Liquid Diet Discharge Diet Recommended Diet: Regular Diet Procedures Procedures Performed: Cystoscopy, Left ureteroscopy, Left ureteral stent insertion Pending Studies Studies pending at discharge: no Medical Emergencies . Who to Call and When: Medical Emergencies: If at any time you feel your situation is an emergency, please call 911 immediately. . Non-Emergent Contact Non-Emergency issues call your: Primary Care Provider . . "Provider Documentation" section prepared by Lucas Chu. . VTE Core Measure Inpt VTE Proph given/why not?: Treatment not indicated
== END 2017-01-02 14:00 | disposition home or self-care (01) | DRG 670 ==
LOC: C.EDB 08:20 → C.MSW 12:07 → ENRESERV 12:18
PROVIDERS: ADMIT Family Medicine; ATTEND Internal Medicine
PROC: 0T778DZ Dilation of Left Ureter with Intraluminal Device, Via Natural or Artificial Opening Endoscopic (ICD-10-PCS; principal; 2017-01-01 13:00)
PROC: BT14ZZZ Fluoroscopy of Kidneys, Ureters and Bladder (ICD-10-PCS; principal; 2017-01-01 13:00)
PROC: 0TC78ZZ Extirpation of Matter from Left Ureter, Via Natural or Artificial Opening Endoscopic (ICD-10-PCS; principal; 2017-01-01 13:00)
DX: N20.1 Calculus of ureter (principal); E03.9 Hypothyroidism, unspecified; Z79.899 Other long term (current) drug therapy; Z82.49 Family history of ischemic heart disease and other diseases of the circulatory system